=== PATIENT | female | born 1945 | race Two or more races ===

== ENCOUNTER 2021-12-26 13:08 | Emergency (ER) | payer OTHER ==
[~2021-12-26] VITALS: Ht 157.5 cm; Wt 113.4 kg
[2021-12-26] MEDS ORDERED: NORVASC5 MG PO (13:39)
[2021-12-26] MEDS ORDERED: NABUMETONE750 MG PO (13:39)
[2021-12-26] MEDS ORDERED: CHILDREN'S ASPI81 MG PO (13:40)
[2021-12-26] MEDS ORDERED: PAXIL40 MG PO (13:40)
[2021-12-26] MEDS ORDERED: PEPCID AC20 MG (13:40)
[2021-12-26] MEDS ORDERED: RISPERDAL2 MG PO (13:41)
[2021-12-26] MEDS ORDERED: ZESTRIL40 M1 PO (13:41)
[2021-12-26] MEDS ORDERED: ESTAZOLAM2 MG PO (13:41)
[2021-12-26] MEDS ORDERED: BACTRIM DS TAB1 EACH PO (18:14)
== END 2021-12-26 18:38 | disposition home or self-care (01) ==
LOC: ER 13:08
DX: E11.69 Type 2 diabetes mellitus with other specified complication (principal); E08.621 Diabetes mellitus due to underlying condition with foot ulcer; L08.89 Other specified local infections of the skin and subcutaneous tissue; B96.5 Pseudomonas (aeruginosa) (mallei) (pseudomallei) as the cause of diseases classified elsewhere; B95.1 Streptococcus, group B, as the cause of diseases classified elsewhere; B96.89 Other specified bacterial agents as the cause of diseases classified elsewhere; L97.829 Non-pressure chronic ulcer of other part of left lower leg with unspecified severity; L97.319 Non-pressure chronic ulcer of right ankle with unspecified severity; R51.9 Headache, unspecified; Z91.013 Allergy to seafood; Z79.84 Long term (current) use of oral hypoglycemic drugs; I10 Essential (primary) hypertension; E11.9 Type 2 diabetes mellitus without complications